=== PATIENT | male | born 1965 | race Caucasian/White ===

== ENCOUNTER 2022-10-08 10:42 | Emergency (ER) | payer OTHER ==
[~2022-10-08] VITALS: Ht 180.3 cm; Wt 99.8 kg
[2022-10-08] MEDS ORDERED: CORTISPORIN EAR10 M1 OPHT (12:11)
[2022-10-08] MEDS ORDERED: KETO10TA2 PO (12:11)
[2022-10-08] MEDS ORDERED: AMOX-CLAV 875-1 EACH PO (12:11)
== END 2022-10-08 12:50 | disposition home or self-care (01) ==
LOC: ER 10:42
DX: H60.91 Unspecified otitis externa, right ear (principal)